=== PATIENT | female | born 1960 | race African-American/Black ===

== ENCOUNTER 2016-12-20 00:44 | Emergency (ER) | payer OTHER ==
[~2016-12-20] VITALS: Ht 152.4 cm; Wt 41.3 kg
[~2016-12-20 00:44] MED LIST: BETASERON0.3 MG/SY1 SC; CALCIUM + VITA1 EACH PO; CIPRO500 MG PO; COLACE100 MG PO; COZAAR 50 MG TA50 M2 PO; DITROPAN XL10 MG PO; FISH OIL 1,001000 M2 PO; FLAGYL500 MG PO; HYDROCODONE-AP1 EAC6 PO; IMITREX100 MG PO; IRON325 PO; LIORESAL 10 MG10 MG PO; LORTAB PO; LYRICA 75 MG CA75 MG PO; METHIMAZOLE5 MG PO; NEURONTIN 300300 M1 PO; NEURONTIN300 MG; NEURONTIN600 MG PO; NORCO 5-325 TA1 EACH PO; NORTHYX10 MG PO; NORVASC5 MG PO; PROTONIX40 M2 PO; SEPTRA DS TABL1 EACH PO; SUMATRIPTAN SU100 MG PO; TAMIFLU30 MG PO; TAPAZOLE5 MG PO; UNICOMPLEX M TA1 TA1 PO; ZYRTEC10 M2 PO; [UNRECOGNIZED DRUG - OTHER]; [UNRECOGNIZED DRUG - OTHER] PO; [UNRECOGNIZED DRUG - REMARK]
[2016-12-20 01:20] LABS: ABSOLUTE NEUTROPHILS 3.6 thou/uL (1.4-8.2); BASOPHILS 0.6 % (0.0-2.0); EOSINOPHILS 0.5 % (0.0-3.0); HEMATOCRIT 36.6 % (37.0-47.0); HEMOGLOBIN 12.6 gm/dL (12.0-15.0); MCH 29.9 pg (26.0-34.0); MCHC 34.5 g/dL (28.0-37.0); MCV 86.5 fL (80.0-100.0); MONOCYTES 7.6 % (1.0-8.0); PLATELET COUNT 225 thou/uL (150-400); POLYS 64.3 % (36.0-66.0); RBC 4.23 mil/uL (4.20-5.00); RDW 13.9 % (10.5-14.5); WBC 5.6 thou/uL (4.0-11.0)
[2016-12-20 01:26] LABS: ANION GAP 7 mmol/L (7-16); BUN 17 mg/dL (7-18); CALCIUM 9.4 mg/dL (8.5-10.1); CHLORIDE 110 mmol/L (98-107); CO2 27 mmol/L (21-32); CREATININE 1.1 mg/dL (0.6-1.0); GLUCOSE 142 mg/dL (74-106); POTASSIUM 3.7 mmol/L (3.5-5.1); SODIUM 144 mmol/L (136-145)
[2016-12-20 01:30] LABS: MANUAL DIFF NO
[2016-12-20 01:31] LABS: ALBUMIN 3.4 g/dL (3.4-5.0); ALKALINE PHOSPHATASE 107 U/L (46-116); DIRECT BILIRUBIN < 0.1 mg/dL (<0.1-0.3); SGOT 16 U/L (15-37); SGPT 18 U/L (30-65); TOTAL BILIRUBIN 0.3 mg/dL (<0.1-1.0); TOTAL PROTEIN 7.5 g/dL (6.4-8.2)
[2016-12-20] MEDS ORDERED: SENOKOT-S1 TA1 PO (02:05)
[2016-12-20] MEDS ORDERED: CITRATE OF MAG296 ML PO (02:05)
== END 2016-12-20 02:23 | disposition home or self-care (01) ==
LOC: ER 00:44
PROVIDERS: Emergency Medicine
DX: K59.00 Constipation, unspecified (principal); K21.9 Gastro-esophageal reflux disease without esophagitis; E05.90 Thyrotoxicosis, unspecified without thyrotoxic crisis or storm; G35 Multiple sclerosis; G50.0 Trigeminal neuralgia; I10 Essential (primary) hypertension; G43.909 Migraine, unspecified, not intractable, without status migrainosus; M19.90 Unspecified osteoarthritis, unspecified site; Z90.710 Acquired absence of both cervix and uterus; Z88.8 Allergy status to other drugs, medicaments and biological substances

== ENCOUNTER 2017-05-06 18:27 | Inpatient (IN) | payer OTHER ==
[~2017-05-06] VITALS: Ht 152.4 cm; Wt 49.0 kg
--- NOTE | ~2017-05-06 | HC ---
[facility] [place] [address] CONSULTATION Name: CAINSANDRAALICIA Mcdonough Room #: 417-I ADM IN [facility].#: [id number] Admission: 05/06/17 Attend Phys: Sabino Calabrese MD Discharge: Date of : 58 Report #: [id number] THIS REPORT FOR: //name// CC: Lesley Jun Calabrese DATE OF SERVICE: 05/07/2017 REFERRING PROVIDER: Sabino Calabrese MD. REASON FOR CONSULTATION: Abdominal pain. HISTORY OF PRESENT ILLNESS: The patient is a 56-year-old female who is known to our service as Dr. Celestin performed 2 exploratory laparotomies with extensive lysis of adhesions and segmental small bowel resections last year for recurrent symptoms of small-bowel obstruction. The patient has been doing well until over the past several days when she developed upper abdominal pain, nausea and vomiting. The patient presented back to the Emergency Room for evaluation where a CT scan of the abdomen and pelvis was obtained and showed a solitary dilated loop of bowel within the left upper quadrant at the site of her discomfort consistent with recurrent small-bowel obstruction and as such, she was admitted and we were asked to evaluate today. PAST MEDICAL HISTORY: Multiple sclerosis, hyperthyroidism, GERD, trigeminal neuralgia, migraine headaches, arthritis and prior protein calorie malnutrition. PAST SURGICAL HISTORY: Positive for bilateral tubal ligation, subsequent hysterectomy and 2 prior explorations for lysis of adhesions with small bowel resections and a prior rotator cuff repair. HOME MEDICATIONS: Methimazole, Ditropan, interferon beta, Neurontin, baclofen, losartan, amlodipine, Imitrex, calcium with vitamin D and a multivitamin with iron. ALLERGIES: TO BUTALBITAL. FAMILY HISTORY: Reviewed and noncontributory. SOCIAL HISTORY: Negative for tobacco, alcohol or illicit drugs. REVIEW OF SYSTEMS: GENERAL: The patient denies nocturnal fevers or chills. HEENT: No change in vision, change in hearing. NECK: No swelling or difficulty swallowing. HEART: No chest pain or palpitations. LUNGS: No cough or shortness of breath. [facility] [address] [place] [address] CONSULTATION Name: FLORENCE BARLOW Room #: 417-I [facility]#: [id number] Admission: 05/06/17 Attend Phys: Sabino Calabrese MD Discharge: Date of : 58 Report #: [id number] ABDOMEN: Abdominal pain with nausea and vomiting. GENITOURINARY: No dysuria or hematuria. ENDOCRINE: No polyuria or polydipsia. HEMATOLOGIC: No history of bleeding or easy bruising. EXTREMITIES: No history of weakness or limited range of motion. NEUROLOGIC: No history of syncope or near syncopal episodes. SKIN AND INTEGUMENT: No history of abnormal lesions or moles. PSYCHIATRIC: No history of anxiety or depression. PHYSICAL EXAMINATION: VITAL SIGNS: Temperature 98.1, pulse 80, respirations 15, blood pressure 142/91. She stands 5 feet 0 inches tall and weighs 108 pounds. GENERAL: Alert and oriented, in no acute distress. HEENT: Normocephalic, atraumatic. Pupils equal, round, reactive to light. NECK: Supple, without lymphadenopathy. Trachea midline. HEART: Regular rate and rhythm. LUNGS: Clear to auscultation bilaterally. GASTROINTESTINAL: Abdomen is soft, nondistended. Minimal tenderness in the left mid abdomen with no guarding, no rebound, no peritoneal signs or symptoms. GENITOURINARY: Normal external female genitalia. EXTREMITIES: No clubbing, cyanosis or edema. NEUROLOGIC: Cranial nerves 2-12 are grossly intact. PSYCHIATRIC: Normal mood and affect. SKIN AND INTEGUMENT: No abnormal lesions or moles. LABORATORY AND X-RAY DATA: CBC showed white blood cell count of 10,500, hemoglobin 13.1, platelets 221,000. She has a slight left shift of 78% neutrophils. Creatinine is 1.2 with liver function enzymes and lipase being normal. Lactic acid was normal at 1.3. Urinalysis largely negative, although there were a few bacteria seen. Urine culture is pending. CT scan of the abdomen and pelvis as per HPI shows a solitary loop of small bowel. It is dilated and fluid filled in the left upper quadrant that could be consistent with a small-bowel obstruction versus postoperative changes from her prior laparotomy. She has gas and stool throughout the distal small bowel and colon. ASSESSMENT AND PLAN: A 56-year-old -Indian female with multiple sclerosis who has undergone 2 prior explorations for small bowel obstructions that required segmental small bowel resections. The patient presents with a dilated loop of small bowel with pain, nausea and vomiting. However, she continues to have air and fluid in the distal small bowel and colon consistent with likely a partial bowel obstruction at this time. The patient's white blood cell count and lactate are both normal and as such, we will initiate conservative measures at this time with bowel rest, reserving the right to place an NG tube if she becomes nauseated and vomiting. We will continue with IV fluid rehydration and scant oral intake only for medications and ice chips for comfort. She will be allowed to ambulate and hopefully, she will clear this [facility] [address] [place] [address] CONSULTATION Name: FLORENCE BARLOW Room #: 417-I ADM IN [facility].#: [id number] Admission: 05/06/17 Attend Phys: Sabino Calabrese MD Discharge: Date of : 58 Report #: [id number] bout of bowel obstruction with conservative measures once again. I sincerely appreciate this consult. I will follow closely and leave any further recommendations in the patient's chart as appropriate. <ELECTRONICALLY SIGNED> By: Ector Whiting MD, FACS 05/08/17 0735 [id number] Ector Whiting MD, FACS /nt
[~2017-05-06 18:27] MED LIST changes: +CITRATE OF MAG296 ML PO; +SENOKOT-S1 TA1 PO
[2017-05-06 18:29] VITALS: BP 143/89
[2017-05-06 19:23] LABS: HEMATOCRIT 38.4 % (37.0-47.0); HEMOGLOBIN 13.1 gm/dL (12.0-15.0); MCH 29.1 pg (26.0-34.0); MCHC 34.1 g/dL (28.0-37.0); MCV 85.4 fL (80.0-100.0); PLATELET COUNT 221 thou/uL (150-400); RBC 4.49 mil/uL (4.20-5.00); RDW 13.7 % (10.5-14.5); WBC 10.5 thou/uL (4.0-11.0)
[2017-05-06 19:26] LABS: MANUAL DIFF YES
[2017-05-06 19:33] LABS: CALCIUM 9.7 mg/dL (8.5-10.1); CREATININE 1.2 mg/dL (0.6-1.0); POTASSIUM 3.4 mmol/L (3.5-5.1)
[2017-05-06 19:39] LABS: ALBUMIN 3.7 g/dL (3.4-5.0); TOTAL BILIRUBIN 0.2 mg/dL (<0.1-1.0)
[2017-05-06 19:52] LABS: ABSOLUTE NEUTROPHILS 8.6 thou/uL (1.4-8.2); ATYPICAL LYMPHS 1 %; TOTAL CELL COUNT 100
[2017-05-06 19:53] LABS: ANISOCYTOSIS SLIGHT
[2017-05-06 20:17] LABS: URINE BILIRUBIN NEGATIVE (Negative); URINE BLOOD NEGATIVE (Negative); URINE COLOR YELLOW; URINE GLUCOSE-RANDOM* NEGATIVE (Negative); URINE KETONES 1+ (Negative); URINE NITRITE NEGATIVE (Negative); URINE PROTEIN (DIPSTICK) 2+ (Negative); URINE SPECIFIC GRAVITY 1.015 (1.003-1.035); URINE UROBILINOGEN 0.2 E.U./dl (0.2-1.0)
[2017-05-06 20:32] LABS: BACTERIA 1-9 Few /HPF (None Seen); CASTS None Seen /LPF (None Seen); CRYSTALS None Seen /LPF (None Seen); SQUAMOUS 0-3 Few /LPF (0-3); URINE RBC 0-2 Rare /HPF (0-2); URINE WBC 0-5 Rare /HPF (0-5)
[2017-05-06 22:34] VITALS: BP 169/89; BP 17/110
[2017-05-07 03:19] VITALS: BP 134/85
[2017-05-07 06:35] LABS: CALCIUM 9.2 mg/dL (8.5-10.1)
[2017-05-07 06:39] LABS: POTASSIUM 4.4 mmol/L (3.5-5.1)
[2017-05-07 07:30] VITALS: BP 142/91
[2017-05-07 18:56] VITALS: BP 156/93
[2017-05-08 02:50] VITALS: BP 140/95
[2017-05-08 06:30] LABS: HEMATOCRIT 33.3 % (37.0-47.0); MCH 28.7 pg (26.0-34.0); MCHC 33.2 g/dL (28.0-37.0); MCV 86.5 fL (80.0-100.0); RBC 3.85 mil/uL (4.20-5.00); RDW 13.7 % (10.5-14.5); WBC 5.8 thou/uL (4.0-11.0)
[2017-05-08 06:46] LABS: CALCIUM 8.6 mg/dL (8.5-10.1)
[2017-05-08 06:57] LABS: POTASSIUM 3.4 mmol/L (3.5-5.1)
[2017-05-08 07:18] VITALS: BP 142/94
[2017-05-08 19:10] VITALS: BP 165/96
[2017-05-09 02:56] VITALS: BP 145/91
[2017-05-09 08:00] VITALS: BP 141/90
[2017-05-09 10:31] LABS: CALCIUM 9.2 mg/dL (8.5-10.1); CREATININE 0.9 mg/dL (0.6-1.0); MAGNESIUM 2.2 mg/dL (1.8-2.4); POTASSIUM 4.2 mmol/L (3.5-5.1)
[2017-05-09 16:00] VITALS: BP 165/96
[2017-05-09 19:09] VITALS: BP 151/90
[2017-05-10 04:08] VITALS: BP 129/92
[2017-05-10 07:35] VITALS: BP 127/83
[2017-05-10 17:27] VITALS: BP 123/87
[2017-05-10 19:59] VITALS: BP 127/76
[2017-05-11 03:09] VITALS: BP 129/85
[2017-05-11 07:28] VITALS: BP 114/69
[2017-05-11 09:54] LABS: HEMATOCRIT 35.8 % (37.0-47.0); HEMOGLOBIN 11.9 gm/dL (12.0-15.0); MCH 28.6 pg (26.0-34.0); MCHC 33.1 g/dL (28.0-37.0); MCV 86.4 fL (80.0-100.0); RBC 4.14 mil/uL (4.20-5.00); RDW 13.5 % (10.5-14.5); WBC 5.8 thou/uL (4.0-11.0)
[2017-05-11 10:01] LABS: CALCIUM 9.2 mg/dL (8.5-10.1); CREATININE 1.2 mg/dL (0.6-1.0); POTASSIUM 4.1 mmol/L (3.5-5.1)
[2017-05-11 16:15] VITALS: BP 135/85
[2017-05-11 20:00] VITALS: BP 136/83; BP 141/68
[2017-05-12 04:30] VITALS: BP 126/77
[2017-05-12 07:30] VITALS: BP 140/71
[2017-05-12 15:30] VITALS: BP 117/76
[2017-05-12 19:53] VITALS: BP 123/76
[2017-05-13 05:34] VITALS: BP 120/82
[2017-05-13 06:55] VITALS: BP 129/86
[2017-05-13] MEDS ORDERED: MIRALAX17 GM PO (14:53)
[2017-05-13 15:31] VITALS: BP 129/86
[2017-05-13 15:43] VITALS: BP 129/86
== END 2017-05-13 16:54 | disposition home or self-care (01) | DRG 389 ==
LOC: ER 18:27 → EROBS 20:58 → 4E 20:58 → ENTRNSPT 05-13 16:02 → 4E 05-13 16:54
PROVIDERS: Internal Medicine; Nurse Practitioner Acute Care; Physician Assistant; Surgery
DX: K56.609 Unspecified intestinal obstruction, unspecified as to partial versus complete obstruction (principal); N17.9 Acute kidney failure, unspecified; K21.9 Gastro-esophageal reflux disease without esophagitis; E05.90 Thyrotoxicosis, unspecified without thyrotoxic crisis or storm; G43.909 Migraine, unspecified, not intractable, without status migrainosus; M19.90 Unspecified osteoarthritis, unspecified site; I10 Essential (primary) hypertension; G35 Multiple sclerosis; G50.0 Trigeminal neuralgia; Z90.710 Acquired absence of both cervix and uterus; Z79.899 Other long term (current) drug therapy; Z88.8 Allergy status to other drugs, medicaments and biological substances
CPT/HCPCS: 10084